=== PATIENT | male | born 1995 | race Caucasian/White ===

== ENCOUNTER 2017-12-05 19:56 | Emergency (ER) | payer BC ==
[2017-12-05 21:59] VITALS: BP 125/71
--- NOTE | 2017-12-05 23:46 | ED ---
Head Injury - HPI Summary HPI Summary: Patient is a 22-year-old male who presents emergency department for a head injury that occurred 3 hours prior to arrival. Patient states he was playing recreational soccer when he was hit in the head by an opposing player's foot. Patient was hit to the lower face area. Patient states he did not lose consciousness but does not clearly remember all of the events before and after the incident. He admits that his vision was a little blurry at first which has resolved. Also had light sensitivity which is also resolved. Patient complains of a headache. Denies nausea or vomiting. Patient's friend states he is acting appropriately. Patient states he did have some mild bleeding from his nose and noticed his 2 front teeth are painful. Denies neck pain. He has no past medical history. Symptoms are mild in severity. No current modifying factors. - History Of Current Complaint Chief Complaint: EDHeadInjury Stated Complaint: HEAD INJURY Time Seen by Provider: 12/05/17 21:02 Hx Obtained From: Patient Mechanism Of Injury: Direct Blow Onset/Duration: Started Hours Ago Onset of Pain: Immediate Severity Currently: Mild Severity Initially: Mild Pain Intensity: 2 Pain Scale Used: 0-10 Numeric Location of Head Injury: Frontal Character: Throbbing Aggravating Factor(s): Movement Alleviating Factor(s): Rest Associated Signs And Symptoms: Negative - Allergies/Home Medications Allergies/Adverse Reactions: Allergies Allergy/AdvReac Type Severity Reaction Status Date / Time No Known Allergies Allergy Verified 12/05/17 21:08 PMH/Surg Hx/FS Hx/Imm Hx Previously Healthy: Yes - Immunization History Date of Tetanus Vaccine: pt reports UTD on vaccinations Immunizations Up to Date: Yes Infectious Disease History: No Infectious Disease History: Denies: Traveled Outside the [place] in Last 30 Days - Social History Occupation: Student Lives: Dormitory/Roommates Alcohol Use: Occasionally Substance Use Type: Reports: None Smoking Status (MU): Never Smoked Tobacco Review of Systems Positive: Epistaxis, Dental Pain Negative: Vomiting, Diarrhea Positive: Headache. Negative: Weakness, Paresthesia, Numbness, Syncope, Slurred Speech All Other Systems Reviewed And Are Negative: Yes Physical Exam Triage Information Reviewed: Yes Vital Signs On Initial Exam: Initial Vitals Temp Pulse Resp BP Pulse Ox 98.2 F 53 16 121/42 100 12/05/17 19:58 12/05/17 19:58 12/05/17 19:58 12/05/17 19:58 12/05/17 19:58 Vital Signs Reviewed: Yes Appearance: Positive: Well-Appearing - Patient sitting up in bed in no acute distress. Very interactive and talkative. Friend present. Skin: Positive: Warm, Dry Head/Face: Positive: Other - No scalp hematoma noted. Mild edema noted to the upper lip with bruising. Dried blood in bilateral nares. No active bleeding. No septal hematoma bilaterally. Minimal tenderness over the tip of the nose. No reproducible facial pain. Able to open and close mouth without difficulty or pain. Small tongue abrasion. Teeth are intact without fracture. I do not appreciate any loose dentition or trauma. Eyes: Positive: Normal, EOMI, TALIA ENT: Positive: Other - As noted above Neck: Positive: Supple, Nontender Neurological: Positive: Normal, CN Intact II-III Psychiatric: Positive: Normal Diagnostics - Vital Signs Vital Signs Temp Pulse Resp BP Pulse Ox 12/05/17 21:50 97.7 F 53 20 125/71 100 12/05/17 19:58 98.2 F 53 16 121/42 100 - Laboratory Lab Statement: Any lab studies that have been ordered have been reviewed, and results considered in the medical decision making process. Head Injury Course/Dx Course Of Treatment: Patient presenting to the ER after head injury that occurred roughly 3 hours ago. Neurological exam is unremarkable. Risk of radiation from CT outweighs significant findings. Advised patient to be unable to return to physical/contact sports until cleared by her family doctor. He is currently a student and [employer]. Advised to follow-up with the health center. Advised to avoid excessive cell phone, computer [employer] use, reading. Can take Tylenol or Motrin for pain as directed. To return to the ER symptoms change or worsen. Patient understands and agrees the plan. - Diagnoses Provider Diagnoses: Head injury, Facial contusion Discharge - Sign-Out/Discharge Documenting (check all that apply): Discharge - Discharge Plan Condition: Good Disposition: HOME Patient Education Materials: Head Injury (ED), Post Concussion Syndrome (ED), Facial Contusion (ED) Referrals: [facility] - Duong ROBERTS [Primary Care Provider] - Additional Instructions: Schedule a follow up appointment with your PCP or [facility] Do not return to contact sports until cleared by PCP Avoid TV, computer, and cellphone screen use, excessive reading Tylenol or Motrin for pain as directed Return to ER if symptoms change or worsen - Billing Disposition and Condition Condition: GOOD Disposition: HOME
== END 2017-12-05 21:58 | disposition home or self-care (01) ==
LOC: ED 19:56
DX: S09.90XA Unspecified injury of head, initial encounter (principal); S00.83XA Contusion of other part of head, initial encounter; W50.0XXA Accidental hit or strike by another person, initial encounter; Y93.66 Activity, soccer; Y92.39 Other specified sports and athletic area as the place of occurrence of the external cause; K08.89 Other specified disorders of teeth and supporting structures; R04.0 Epistaxis; R51 Headache
CPT/HCPCS: 99282